=== PATIENT | male | born 1990 | race Caucasian/White ===

== ENCOUNTER 2017-09-12 10:40 | Emergency (ER) | payer SELFPAY ==
[2017-09-12 11:09] VITALS: BP 146/80; PULSE 80; TEMP 98.4; BMI 40.6
--- NOTE | 2017-09-12 11:39 | PDOC ---
History of Present Illness - General Chief Complaint: Penile Drainage Stated Complaint: INFECTION Time Seen by Provider: 09/12/17 11:13 History Source: Patient Exam Limitations: No Limitations - History of Present Illness Initial Comments: 09/12/17 11:36 Patient is a 26-year-old male past medical history of diabetes, who presents emergency department today complaining that he has a yeast infection to his foreskin. Patient states he had one last year. He noticed, cottage cheese like discharge before his shower. Also admits to foresking pain/ cracking, dysuria. Patient states he is in a monogamous relationship with one woman. Is not concern for STD testing at this time. Denies fevers, chills, testicular pain, drainage from the penis. Past History - Travel Traveled outside of the country in the last 30 days: No Close contact w/someone who was outside of country & ill: No - Past Medical History Allergies/Adverse Reactions: Allergies Allergy/AdvReac Type Severity Reaction Status Date / Time No Known Allergies Allergy Verified 09/12/17 11:02 Home Medications: Ambulatory Orders Lancets/Blood Glucose Strips [Fora [id number] Strp-Lnct] 1 each MC QID # 100 combo..pkg 07/18/15 Metformin HCl [Glucophage] 500 mg PO BID #60 tablet 07/18/15 Miscellaneous Medical Supply [Glucometer Device] 1 each SQ ASDIR #1 kit Miscellaneous Medical Supply [Glucometer Test Strips #100] 1 each SQ ASDIR #1 box 07/18/15 Fluconazole [Diflucan -] 100 mg PO DAILY #2 tablet 09/12/17 Mupirocin 1 gm TP TID #60 gm 09/12/17 COPD: No Diabetes: Yes (CHILDHOOD) - Immunization History Immunization Up to Date: Yes - Suicide/Smoking/Psychosocial Hx Smoking History: Never smoked Have you smoked in the past 12 months: Yes Number of Cigarettes Smoked Daily: 0 Information on smoking cessation initiated: No Hx Alcohol Use: Yes (OCCASIONALLY) Drug/Substance Use Hx: No Substance Use Type: None Review of Systems - Review of Systems Able to Perform ROS?: Yes Comments:: 09/12/17 11:38 CONSTITUTIONAL: Absent: fever, chills, diaphoresis, generalized weakness, malaise, loss of appetite GASTROINTESTINAL: Absent: abdominal pain, abdominal distension, nausea, vomiting, diarrhea, constipation, melena, hematochezia GENITOURINARY: Present: pain to foreskin, discharge from foreskin Absent: dysuria, frequency, urgency, hesitancy, hematuria, flank pain, genital pain SKIN: Absent: rash, itching, pallor NEUROLOGIC: Absent: headache, focal weakness or paresthesias, dizziness, unsteady gait, seizure, mental status changes, bladder or bowel incontinence PSYCHIATRIC: Absent: anxiety, depression, suicidal or homicidal ideation, hallucinations. Is the patient limited Palestinian proficient: No *Physical Exam - Vital Signs Last Vital Signs Temp Pulse Resp BP Pulse Ox 98.4 F 80 18 146/80 99 09/12/17 10:59 09/12/17 10:59 09/12/17 10:59 09/12/17 10:59 09/12/17 10:59 - Physical Exam Comments: 09/12/17 11:39 GENERAL: Well developed, well nourished. Awake and alert. No acute distress. ABDOMINAL: Soft. Non-tender. Non-distended. No rebound or guarding. No organomegaly. Normoactive bowel sounds. : Foreskin with cracking, and erythema. No discharge from foreskin noted. No discharge from the penile head. Testicles freely moving and descended b/l. No testicular pain. SKIN: Warm and dry. Normal capillary refill. No rashes. No jaundice. NEUROLOGICAL: Alert, awake, appropriate. Cranial nerves 2-12 intact. No deficits to light touch and temperature in face, upper extremities and lower extremities. No motor deficits in the in face, upper extremities and lower extremities. Normoreflexic in the upper and lower extremities. Normal speech. Toes are down- going bilaterally. Gait is normal without ataxia. Medical Decision Making - Medical Decision Making 09/12/17 11:49 Patient is a 26-year-old male past medical history of diabetes, who presents emergency department today complaining of pain in his foreskin as well as cottage cheeselike discharge. No discharge appreciated on exam, however patient states he showered before he came to the emergency department. Cracking to foreskin noted. We will treat with Bactroban and Diflucan at this time. Patient states he recently labs to his insurance and is not taking his diabetic medication. UA shows 3+ glucose. Explained to patient that he needs to restart the medication the cause he may have long-term consequences after not taking the meds. Return precautions given. Patient stands all discharge instructions and all questions were answered *DC/Admit/Observation/Transfer Diagnosis at time of Disposition: Yeast infection - Discharge Dispostion Disposition: HOME Condition at time of disposition: Stable Decision to Admit order: No - Prescriptions Prescriptions: Fluconazole [Diflucan -] 100 mg PO DAILY #2 tablet Mupirocin 1 gm TP TID #60 gm - Referrals Referrals: Bob Paulino MD [Staff Physician] - - Patient Instructions Printed Discharge Instructions: DI for Yeast Infection-Skin Additional Instructions: You have a yeast infection around your foreskin. Please use Monistat and the mupirocin on the cracks to help with pain and healing. Alternate using the creams. Please take Diflucan today. Then take the second pill on Wednesday to help treat the yeast. On your urine exam there is sugar in the urine. You need to go back on your diabetic medication. Please follow-up with the primary care referral provided for you. Return to the emergency department if you have worsening pain, fevers, chills, testicular pain, or give any changes in your symptoms. - Post Discharge Activity
[2017-09-12 11:54] LABS: URINE APPEARANCE CLEAR; URINE BILIRUBIN NEGATIVE (<2.0 mg/dL); URINE BLOOD NEGATIVE (NEGATIVE); URINE COLOR YELLOW; URINE GLUCOSE (UA) 3+ (NEGATIVE); URINE KETONE NEGATIVE (NEGATIVE); URINE LEUK ESTERASE NEGATIVE (NEGATIVE); URINE NITRITE NEGATIVE (NEGATIVE); URINE UROBILINOGEN NEGATIVE mg/dL (0.2-1.0)
[2017-09-12 11:55] LABS: URINE PROTEIN 2+ (NEGATIVE)
[2017-09-12 11:58] LABS: EPI CELLS RARE /HPF (FEW); URINE MUCUS RARE
== END 2017-09-12 12:22 | disposition home or self-care (01) ==
LOC: JER 10:40 → JERFT 10:40
DX: B37.49 Other urogenital candidiasis (principal); E11.9 Type 2 diabetes mellitus without complications; Z79.84 Long term (current) use of oral hypoglycemic drugs
CPT/HCPCS: 81003; 81015; 87086; 99281-25

== ENCOUNTER 2017-11-05 15:39 | Emergency (ER) | payer SELFPAY ==
[2017-11-05 15:53] VITALS: BP 149/90; PULSE 82; TEMP 98.5; BMI 41.2
--- NOTE | 2017-11-05 15:54 | PDOC ---
Rapid Medical Evaluation Time Seen by Provider: 11/05/17 15:49 Medical Evaluation: Allergies Allergy/AdvReac Type Severity Reaction Status Date / Time No Known Allergies Allergy Verified 09/12/17 11:02 11/05/17 15:49 I have performed a brief in-person evaluation of this patient. The patient presents with a chief complaint of: bennett discharge w/ discomfort to genitalia x 1 week. H/o NIDDM, non-compliant w/ meds, has not taken metformin ~ 1 yr Pertinent physical exam findings:will defer exam to ED provider I have ordered the following:ua/std The patient will proceed to the ED for further evaluation. Discharge Disposition - Diagnosis Balanitis - Referrals - Patient Instructions - Post Discharge Activity
--- NOTE | 2017-11-05 16:37 | PDOC ---
History of Present Illness - General Chief Complaint: Penile Drainage Stated Complaint: REVISIT, PENILE DRAINAGE Time Seen by Provider: 11/05/17 15:49 - History of Present Illness Initial Comments: 87-year-old male presents for evaluation of a rash and discharge from his penis. It's been like that for about a week now he's had this problem in the past he was diagnosed with the use infection given diclofenac and Bactroban and has never followed up since. He is a diabetic uncontrolled at this point because he is noncompliant with metformin because he cannot afford it. 11/05/17 16:34 Past History - Past Medical History Allergies/Adverse Reactions: Allergies Allergy/AdvReac Type Severity Reaction Status Date / Time No Known Allergies Allergy Verified 11/05/17 15:49 Home Medications: Ambulatory Orders Lancets/Blood Glucose Strips [Fora [id number] Strp-Lnct] 1 each QID # 100 combo..pkg 07/18/15 Metformin HCl [Glucophage] 500 mg PO BID #60 tablet 07/18/15 Fluconazole [Diflucan] 150 mg PO ONCE #1 tablet 11/05/17 Mupirocin Ointment [Bactroban 2% Ointment -] 1 applic TP BID #1 tube 11/05/17 COPD: No Diabetes: Yes (CHILDHOOD) - Immunization History Immunization Up to Date: Yes - Suicide/Smoking/Psychosocial Hx Smoking History: Former smoker Have you smoked in the past 12 months: No Number of Cigarettes Smoked Daily: 0 Information on smoking cessation initiated: No Hx Alcohol Use: Yes (OCCASIONALLY) Drug/Substance Use Hx: No Substance Use Type: None Review of Systems - Review of Systems : Yes: Other All Other Systems: Reviewed and Negative *Physical Exam - Vital Signs Last Vital Signs Temp Pulse Resp BP Pulse Ox 98.5 F 82 19 149/90 100 11/05/17 15:49 11/05/17 15:49 11/05/17 15:49 11/05/17 15:49 11/05/17 15:49 - Physical Exam Comments: He is uncircumcised there are fissures along the foreskin and cottage cheese like discharge around the glans of the penis the urethra is clear 11/05/17 16:36 Medical Decision Making - Medical Decision Making Is a male with penile fissures on the foreskin any yeast infection. He has a history of this. I've explained to him this is because of his uncontrolled diabetes. I have stressed the importance of glucose management. He has no sexual symptoms he has no discharge from his urethra and he is in the monogamous relationship 11/05/17 16:36 11/05/17 16:53 Finger stick 350's I will transfer him to the main ED *DC/Admit/Observation/Transfer Diagnosis at time of Disposition: Balanitis, Hyperglycemia due to type 2 diabetes mellitus - Prescriptions Prescriptions: Fluconazole [Diflucan] 150 mg PO ONCE #1 tablet Mupirocin Ointment [Bactroban 2% Ointment -] 1 applic TP BID #1 tube - Referrals - Patient Instructions - Post Discharge Activity
[2017-11-05] MEDS ORDERED: SODIUM CHLORIDE 0.9% 500 ML INFUS.BAG IV ONE (16:55)
--- NOTE | 2017-11-05 17:19 | PDOC ---
History of Present Illness - General Chief Complaint: Penile Drainage Stated Complaint: REVISIT, PENILE DRAINAGE Time Seen by Provider: 11/05/17 15:49 History Source: Patient Exam Limitations: No Limitations - History of Present Illness Initial Comments: 27 YOM with h/o NIDDM (not currently medicated or checking BG at home) who p/w 4 days of worsening penile pain and discharge. He describes swelling and small cuts/lesions to the foreskin which become very painful (8/10 burning) whenever he attempts to retract it to urinate. He has had similar but milder symptoms in the past, and was treated here in [facility] within the past month for this. Prior to this past month, the last time he had a yeast infection was 5 years ago. He notes having previously taken Metformin (1000 mg/day) but stopped taking this because he lost weight and his blood sugar level started dropping too low. He denies any recent headache, dizziness, lightheadedness, SOB, chest pain, abdominal pain, n/v/d/c, polyuria, polydipsia, or other symptoms. Past History - Past Medical History Allergies/Adverse Reactions: Allergies Allergy/AdvReac Type Severity Reaction Status Date / Time No Known Allergies Allergy Verified 11/05/17 15:49 Home Medications: Ambulatory Orders Lancets/Blood Glucose Strips [Fora [id number] Strp-Lnct] 1 each QID # 100 combo..pkg 07/18/15 Metformin HCl [Glucophage] 500 mg PO BID #60 tablet 07/18/15 Fluconazole [Diflucan] 150 mg PO ONCE #1 tablet 11/05/17 Mupirocin Ointment [Bactroban 2% Ointment -] 1 applic TP BID #1 tube 11/05/17 COPD: No Diabetes: Yes (CHILDHOOD) - Immunization History Immunization Up to Date: Yes - Suicide/Smoking/Psychosocial Hx Smoking History: Former smoker Have you smoked in the past 12 months: No Number of Cigarettes Smoked Daily: 0 Information on smoking cessation initiated: No Hx Alcohol Use: Yes (OCCASIONALLY) Drug/Substance Use Hx: No Substance Use Type: None Review of Systems - Review of Systems Able to Perform ROS?: Yes Constitutional: No: Chills, Fever, Unexplained wgt Loss HEENTM: No: Nose Congestion, Throat Pain Respiratory: No: Cough, Shortness of Breath Cardiac (ROS): No: Chest Pain, Palpitations ABD/GI: No: Constipated, Diarrhea, Nausea, Vomiting : Yes: Burning, Dysuria, Discharge, Pain, Lesions. No: Flank Pain, Hematuria , Testicular Mass, Testicular Swelling Musculoskeletal: No: Back Pain, Neck Pain Integumentary: No: Bruising, Rash Neurological: No: Headache, Numbness, Tingling, Weakness, Dizziness Endocrine: No: Unexplained Weight Gain, Unexplained Weight Loss *Physical Exam - Vital Signs Last Vital Signs Temp Pulse Resp BP Pulse Ox 98.5 F 82 19 149/90 100 11/05/17 15:49 11/05/17 15:49 11/05/17 15:49 11/05/17 15:49 11/05/17 15:49 - Physical Exam General Appearance: Yes: Nourished, Appropriately Dressed, Obese, Other ( comfortable appearing adult male, accompanied by significant other, answering appropriately). No: Apparent Distress HEENT: positive: EOMI, IONA, Normal Voice, Hearing Grossly Normal. negative: Scleral Icterus (R), Scleral Icterus (L), Nasal Congestion Neck: positive: Trachea midline, Supple. negative: Tender, Rigid Respiratory/Chest: positive: Lungs Clear, Normal Breath Sounds. negative: Respiratory Distress, Crackles, Rhonchi, Stridor, Wheezing Cardiovascular: positive: Regular Rhythm, Regular Rate, S1, S2. negative: Edema , JVD, Murmur Gastrointestinal/Abdominal: positive: Normal Bowel Sounds, Soft. negative: Tender, Organomegaly, Pulsatile Mass, Guarding Male Genitalia: positive: other (uncircumcised, foreskin mild swelling/erythema and tender superficial 1 mm fissures x3). negative: testicular tenderness Musculoskeletal: positive: Normal Inspection. negative: Decreased Range of Motion, Vertebral Tenderness Extremity: positive: Normal Capillary Refill, Normal Inspection, Normal Range of Motion. negative: Tender, Cyanosis Integumentary: positive: Normal Color, Dry, Warm. negative: Erythema, Rash, Bruising Neurologic: positive: classroom monitor II-XII NML intact, Fully Oriented, Alert, Normal Mood/ Affect, Normal Response, Motor Strength 5/5 ED Treatment Course - LABORATORY CBC & Chemistry Diagram: 11/05/17 17:25 11/05/17 17:25 - Medications Given in the ED: ED Medications Discontinued Medications Generic Name Dose Route Start Last Admin Trade Name Hema PRN Reason Stop Dose Admin Sodium Chloride 1,000 ml 11/05/17 16:55 11/05/17 17:15 Normal Saline - IV 11/05/17 16:56 1,000 ml ONCE ONE Administration Medical Decision Making - Medical Decision Making Adult male Pt p/w penile pain and discharge with recent h/o balanitis tx here in [facility] within the past month. Also found to have hyperglycemia, h/o NIDDM, no current medications or regular BG checks at home. Initial Vital Signs Temp Pulse Resp BP Pulse Ox 98.5 F 82 19 149/90 100 11/05/17 15:49 11/05/17 15:49 11/05/17 15:49 11/05/17 15:49 11/05/17 15:49 Exam: Results as noted in Physical Exam section. DDX IBNLT: balanitis, urethritis, cellulitis, hernia, testicular torsion, epididymitis, orchitis, Fourniers gangrene, abscess (scrotal, perirectal, folliculitis, etc), spermatocele/hydrocele/hematocele (consider RCC if left varicocele as RCC mass can obstruct gonadal vein where it enters the renal vein) , referred pain (i.e. UTI/pyelonephritis, renal colic, appendicitis, etc), malignancy, contact dermatitis, musculoskeletal, etc. W/U ordered: CBCD CMP Mg Phos Coags UA UCx T&S GC/Chlam/trich NAAT (urethral swab) GC culture US scrotum and scrotal contents TX ordered: IVF, Ofirmev Laboratory Tests 11/05/17 11/05/17 11/05/17 16:20 16:46 17:25 WBC 10.2 H RBC 5.58 Hgb 15.3 Hct 45.6 MCV 81.8 MCH 27.4 MCHC 33.5 RDW 13.3 Plt Count 182 MPV 9.3 Absolute Neuts (auto) 6.2 Neutrophils % 60.5 Lymphocytes % 32.3 Monocytes % 5.2 Eosinophils % 1.1 Basophils % 0.9 Nucleated RBC % 0 VBG pH POC VBG pCO2 POC VBG pO2 Mixed VBG HCO3 Sodium Potassium Chloride Carbon Dioxide Anion Gap BUN Creatinine Creat Clearance w eGFR POC Glucometer [phone] Random Glucose Calcium Phosphorus Magnesium Total Bilirubin AST ALT Alkaline Phosphatase Total Protein Albumin Urine Color Ltyellow Urine Appearance Clear Urine pH 6.0 Ur Specific Frederick 1.033 Urine Protein 1+ H Urine Glucose (UA) 3+ H Urine Ketones Trace H Urine Blood Negative Urine Nitrite Negative Urine Bilirubin Negative Urine Urobilinogen 2.0 Ur Leukocyte Esterase 1+ H Urine WBC (Auto) 4 Urine RBC (Auto) 3 Ur Epithelial Cells Rare Urine Bacteria Rare Acetone, Qual 11/05/17 11/05/17 11/05/17 17:25 17:25 17:25 WBC RBC Hgb Hct MCV MCH MCHC RDW Plt Count MPV Absolute Neuts (auto) Neutrophils % Lymphocytes % Monocytes % Eosinophils % Basophils % Nucleated RBC % VBG pH 7.37 POC VBG pCO2 49.5 POC VBG pO2 35.9 Mixed VBG HCO3 28.0 H Sodium 140 Potassium 4.4 Chloride 104 Carbon Dioxide 27 Anion Gap 9 BUN 14 Creatinine 0.8 Creat Clearance w eGFR > 60 POC Glucometer Random Glucose 333 H* D Calcium 8.7 Phosphorus 3.6 Magnesium 1.9 Total Bilirubin 0.4 AST 27 D ALT 48 D Alkaline Phosphatase 132 H Total Protein 7.2 Albumin 3.6 Urine Color Urine Appearance Urine pH Ur Specific Frederick Urine Protein Urine Glucose (UA) Urine Ketones Urine Blood Urine Nitrite Urine Bilirubin Urine Urobilinogen Ur Leukocyte Esterase Urine WBC (Auto) Urine RBC (Auto) Ur Epithelial Cells Urine Bacteria Acetone, Qual Negative 11/05/17 17:44 WBC RBC Hgb Hct MCV MCH MCHC RDW Plt Count MPV Absolute Neuts (auto) Neutrophils % Lymphocytes % Monocytes % Eosinophils % Basophils % Nucleated RBC % VBG pH POC VBG pCO2 POC VBG pO2 Mixed VBG HCO3 Sodium Potassium Chloride Carbon Dioxide Anion Gap BUN Creatinine Creat Clearance w eGFR POC Glucometer [phone] Random Glucose Calcium Phosphorus Magnesium Total Bilirubin AST ALT Alkaline Phosphatase Total Protein Albumin Urine Color Urine Appearance Urine pH Ur Specific Frederick Urine Protein Urine Glucose (UA) Urine Ketones Urine Blood Urine Nitrite Urine Bilirubin Urine Urobilinogen Ur Leukocyte Esterase Urine WBC (Auto) Urine RBC (Auto) Ur Epithelial Cells Urine Bacteria Acetone, Qual Reassessment: Exam unchanged, patient comfortable going home. Repeat VS: DISCHARGE The Pt has gotten significant relief of symptoms with ED medications. Workup is not concerning for emergency-level pathology at this time. The Pt is appropriate for discharge with close outpatient follow up. Referral information is given for resident primary care clinic. They are comfortable with this plan and will follow up with their PCP in 1-3 days. Metformin and Diflucan given here in the ED. Specific return precautions are discussed and they will come back to the ER if necessary. *DC/Admit/Observation/Transfer Diagnosis at time of Disposition: Balanitis Hyperglycemia due to type 2 diabetes mellitus Qualifiers: Diabetes mellitus oil heaterman insulin use: without alf use Qualified Code(s ): E11.65 - Type 2 diabetes mellitus with hyperglycemia - Discharge Dispostion Disposition: HOME Condition at time of disposition: Stable Decision to Admit order: No - Prescriptions Prescriptions: Fluconazole [Diflucan] 150 mg PO ONCE #1 tablet Mupirocin Ointment [Bactroban 2% Ointment -] 1 applic TP BID #1 tube - Referrals Referrals: [facility] [place] [Provider Group] - Patient Instructions Printed Discharge Instructions: DI for Balanitis Additional Instructions: You were seen in the ER for genitourinary pain, as well as high blood sugar and diabetes. We did an exam, laboratory work on your blood and urine, sent fluid cultures, and we believe you have an infection called angely. We gave you a dose of metformin and a pill of Diflucan antifungal here in the ER. The fluid cultures take a few days to result, so please call back for your results at that time (you should receive a call anyway if there are any abnormal findings) . After our assessment, we believe you are not having a medical emergency and you are safe to go home. 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 Please take [id number] pain relievers like ibuprofen ( Motrin) or Tylenol. Follow up with a regular doctor(s) in the next 1-3 days. We are giving you referral information for our primary care clinic across the streets. Call their clinic [facility], tell them you were seen in the ER, and tell them you need an appointment. Please come back to the ER at any time, 24 hours a day, for any new or worsening symptoms, like worsening pain or swelling, worsening discharge, high fever, or other symptoms. If you are having severe or life threatening symptoms, or symptoms that make it unsafe to drive or have someone drive you, please call 911. - Post Discharge Activity
--- NOTE | 2017-11-05 17:27 | PDOC ---
Attending Attestation - Resident Resident Name: Maggie Herrmann - ED Attending Attestation I have performed the following: I have examined & evaluated the patient, The case was reviewed & discussed with the resident, I agree w/resident's findings & plan - HPI HPI: 11/05/17 17:24 27y/o M NIDDM noncompliant with meds 2/2 lack of primary care (prescribed metformin in the past but has not taken anything in 2 years) presents now with sxs of balanitis diagnosed in [facility]. He has successfully been treated for same in the past. Noted to have fingerstick 350 so sent to ED for further evaluation. - Physicial Exam PE: 11/05/17 17:25 VSS alert, nad no jaundice/pallor. mmm heart regular, abd benign agree with exam, no evidence of phimosis/paraphimosis or scrotal/testicular disease - Medical Decision Making 11/05/17 17:26 27y/o M with hyperglycemia 2/2 untreated DM, complicated by balanitis. r/o ketosis. labs, ua, urine cx ivf treat balanitis, refer to [facility] clinic 11/05/17 18:44 labs including pH are normal aside from isolated hyperglycemia. No evidence of DKA. UA pending, r/o superimposed UTI then d/c with meds and PMD/Endo/ f/u.
[2017-11-05 17:41] LABS: BASO % 0.9 % (0-2.0); EOS % 1.1 % (0-4.5); HEMATOCRIT 45.6 % (35.4-49); HEMOGLOBIN 15.3 GM/dL (11.7-16.9); LYMPH % 32.3 % (8-40); MCH 27.4 pg (25.7-33.7); MCHC 33.5 g/dl (32.0-35.9); MEAN CELL VOLUME 81.8 fl (80-96); MEAN PLT VOLUME 9.3 fl (7.5-11.1); MONO % 5.2 % (3.8-10.2); NEUT % 60.5 % (42.8-82.8); PLATELET COUNT 182 K/MM3 (134-434); RBC 5.58 M/mm3 (4.00-5.60); RDW 13.3 % (11.9-15.9); WHITE BLOOD COUNT 10.2 K/mm3 (4.0-10.0)
[2017-11-05 17:48] LABS: VENOUS PC02 49.5 mmHg (38-52); VENOUS PH 7.37 (7.32-7.42); VENOUS PO2 35.9 mmHg (28-48)
[2017-11-05 18:11] LABS: MAGNESIUM 1.9 mg/dL (1.8-2.4); PHOSPHOROUS 3.6 mg/dL (2.5-4.9)
[2017-11-05 18:13] LABS: ALBUMIN 3.6 g/dl (3.4-5.0); ANION GAP 9 (8-16); BLOOD UREA NITROGEN 14 mg/dL (7-18); CALCIUM 8.7 mg/dL (8.5-10.1); CHLORIDE 104 mmol/L (98-107); CO2 27 mmol/L (21-32); CREATININE 0.8 mg/dL (0.7-1.3); SGPT/ALT 48 U/L (12-78); SODIUM 140 mmol/L (136-145)
[2017-11-05 18:15] LABS: ALK PHOS 132 U/L (45-117); BILIRUBIN,TOTAL 0.4 mg/dL (0.2-1.0); TOT PROT 7.2 g/dl (6.4-8.2)
[2017-11-05 18:23] LABS: POTASSIUM 4.4 mmol/L (3.5-5.1)
[2017-11-05 18:24] LABS: GLUCOSE,RANDOM 333 mg/dL (74-106); SGOT/AST 27 U/L (15-37)
[2017-11-05 18:25] LABS: ACETONE SERUM NEGATIVE (NEGATIVE)
[2017-11-05 19:02] LABS: URINE APPEARANCE CLEAR; URINE BILIRUBIN NEGATIVE (<2.0 mg/dL); URINE COLOR LTYELLOW; URINE GLUCOSE (UA) 3+ (NEGATIVE); URINE KETONE TRACE (NEGATIVE); URINE NITRITE NEGATIVE (NEGATIVE)
[2017-11-05 19:05] LABS: URINE LEUK ESTERASE 1+ (NEGATIVE); URINE PROTEIN 1+ (NEGATIVE)
[2017-11-05 19:09] LABS: EPI CELLS RARE /HPF (FEW); URINE BACTERIA RARE /hpf (NONE SEEN)
[2017-11-05] MEDS ORDERED: metFORMIN HCL 500 MG TABLET (FP) PO ONE (19:17)
[2017-11-05] MEDS ORDERED: FLUCONAZOLE 100 MG TABLET (UD) PO ONE (19:20)
[2017-11-05] MEDS ORDERED: FLUCONAZOLE 100 MG TABLET (UD) ONE (19:31)
== END 2017-11-05 19:39 | disposition home or self-care (01) ==
LOC: JER 15:39 → JERFT 15:39 → JER 19:39
PROC: 3E0337Z Introduction of Electrolytic and Water Balance Substance into Peripheral Vein, Percutaneous Approach (ICD-10-PCS; principal; 2017-11-05)
DX: N48.1 Balanitis (principal); E11.65 Type 2 diabetes mellitus with hyperglycemia; Z79.84 Long term (current) use of oral hypoglycemic drugs; Z87.891 Personal history of nicotine dependence
CPT/HCPCS: 36415; 80053; 81003; 81015; 82009; 82803; 82962; 83735; 84100; 85025; 87491; 87591; 99282-25

== ENCOUNTER 2018-06-06 16:04 | Emergency (ER) | payer SELFPAY ==
[2018-06-06 16:28] VITALS: BP 134/81; PULSE 94; TEMP 98.4; BMI 42.2
[2018-06-06] MEDS ORDERED: SODIUM CHLORIDE 1,000 ML IV SCH ×2 (17:30→18:15)
--- NOTE | 2018-06-06 17:32 | PDOC ---
History of Present Illness - General Chief Complaint: Blood Sugar Problem Stated Complaint: REFERRED BY DR Munoz Seen by Provider: 06/06/18 16:56 - History of Present Illness Initial Comments: 06/06/18 17:26 27 year old man with prior history of DM2 who presents after visit to urgent care for finger wound and found to have a blood sugar of 472. The patient denies any polyuria, polydipsia, recent illness, recent fever, steroid use, n/v/ d/c, abdominal pain or headache. He notes that he was 25 when he had symptoms of polyuria, polydipsia was found to have a blood sugar in the 700s, was seen by Dr. Dove and was started on metformin 500u BID then increased to 1000u BID. The patient took the medications for 6 months, but was able to discontinue medications as he had lost weight. The patient has continued to lose weight since 2 years. Over the past week the patient noted a genital yeast infection that had previously when he had the diabetes. He currently is trying to find a primary care physician as he had lost his insurance but now has regained it. The urgent care physician he saw is a PCP and had sent him glucometer, lancet and test strips as well as insulin, however the patient could not afford the insulin. He denies any other complaints at bedside. Past History - Past Medical History Allergies/Adverse Reactions: Allergies Allergy/AdvReac Type Severity Reaction Status Date / Time No Known Allergies Allergy Verified 11/05/17 15:49 Home Medications: Ambulatory Orders Lancets/Blood Glucose Strips [Fora [id number] Strp-Lnct] 1 each QID # 100 combo..pkg 07/18/15 Metformin HCl [Glucophage] 500 mg PO BID #60 tablet 07/18/15 Fluconazole [Diflucan] 150 mg PO ONCE #1 tablet 11/05/17 Mupirocin Ointment [Bactroban 2% Ointment -] 1 applic TP BID #1 tube 11/05/17 metFORMIN HCL [Metformin HCl] 500 mg PO BID 8 Days #16 solution 06/06/18 COPD: No Diabetes: Yes (CHILDHOOD) - Immunization History Immunization Up to Date: Yes - Suicide/Smoking/Psychosocial Hx Smoking History: Current every day smoker Have you smoked in the past 12 months: Yes Number of Cigarettes Smoked Daily: 0 Information on smoking cessation initiated: No Hx Alcohol Use: No Drug/Substance Use Hx: No Substance Use Type: None *Physical Exam - Vital Signs Last Vital Signs Temp Pulse Resp BP Pulse Ox 98.4 F 94 H 18 134/81 100 06/06/18 16:25 06/06/18 16:25 06/06/18 16:25 06/06/18 16:25 06/06/18 16:25 - Physical Exam Comments: 06/06/18 18:14 L finger bump with darkening and hardening noncellulitic not redness, swelling, fluctuance Moderate Sedation - Procedure Monitoring Vital Signs: Procedure Monitoring Vital Signs Temperature 98.4 F 06/06/18 16:25 Pulse Rate 94 H 06/06/18 16:25 Respiratory Rate 18 06/06/18 16:25 Blood Pressure 134/81 06/06/18 16:25 O2 Sat by Pulse Oximetry (%) 100 06/06/18 16:25 ED Treatment Course - LABORATORY CBC & Chemistry Diagram: 06/06/18 17:42 06/06/18 17:42 Medical Decision Making - Medical Decision Making 06/06/18 18:15 27 year old man with prior history of DM2 who presents after visit to urgent care for finger wound and found to have a blood sugar of 472. The patient denies any polyuria, polydipsia, recent illness, recent fever, steroid use, n/v/ d/c, abdominal pain or headache. He notes that he was 25 when he had symptoms of polyuria, polydipsia was found to have a blood sugar in the 700s, was seen by Dr. Dove and was started on metformin 500u BID then increased to 1000u BID. The patient took the medications for 6 months, but was able to discontinue medications as he had lost weight. The patient has continued to lose weight since 2 years. Over the past week the patient noted a genital yeast infection that had previously when he had the diabetes. ED Course: R/o HHS vs DKA consider patient has DM2 cbc, cmp, acetone, ua, ucx 2L IVF *DC/Admit/Observation/Transfer Diagnosis at time of Disposition: Hyperglycemia - Discharge Dispostion Disposition: HOME Condition at time of disposition: Stable Decision to Admit order: No - Prescriptions Prescriptions: metFORMIN HCL [Metformin HCl] 500 mg PO BID 8 Days #16 solution - Referrals Referrals: Cha Lechuga [Primary Care Provider] - [facility] [place] [facility] [place] Group] - Patient Instructions Printed Discharge Instructions: DI for Hyperglycemia -- Adult Additional Instructions: You were seen in the ED for complaints of elevated blood sugar. In the ED you were evaluated with labwork and treated with IV fluids with improvement of blood sugar. Your results did not show significant findings. There does not appear to be an acute need for immediate hospitalization. You are advised to follow up with your Primary Care Physician within 1 week. You were given a referral to Internal Medicine clinic and are advised to follow up within 1 week. You were given a prescription for a short course of Metformin 500u twice a day. Take the medications as directed, please monitor your blood sugar closely. Return to the ED immediately if you experience excessive urination or thirst, confusion, lethargy, loss of consciousness, fever, weakness, dizziness, chest pain or palpitations. - Post Discharge Activity
--- NOTE | 2018-06-06 18:21 | PDOC ---
Attending Attestation - Resident Resident Name: Lindy Gómez - ED Attending Attestation I have performed the following: I have examined & evaluated the patient, The case was reviewed & discussed with the resident, I agree w/resident's findings & plan, Exceptions are as noted - HPI HPI: 06/06/18 18:11 27 M with h/o DM2 (previously on metformin) presenting to ED with elevated blood sugar. Pt was at urgent care for a wart on his finger. While there, his sugar was checked and found to be in the 400s. Pt denies any symptoms whatsoever. Denies polydipsia or polyuria. Denies N/V. Denies abdominal pain. Denies CP/SOB. Denies F/C. Pt states that he has not been compliant with his meds or following up with his doctor due to insurance issues but now has a new PMD with whom he will follow. - Physicial Exam PE: 06/06/18 18:22 "GENERAL: Awake, alert, and fully oriented, in no acute distress. HEAD: No signs of trauma EYES: PERRLA, EOMI, sclera anicteric, conjunctiva clear ENT: Auricles normal inspection, hearing grossly normal, nares patent, oropharynx clear without exudates. Moist mucosa NECK: Nontender, no stepoffs, Normal ROM, supple, no lymphadenopathy, JVD, or masses LUNGS: Breath sounds equal, clear to auscultation bilaterally. No wheezes, and no crackles HEART: Regular rate and rhythm, normal S1 and S2, no murmurs, rubs or gallops ABDOMEN: Soft, nontender, normoactive bowel sounds. No guarding, no rebound. No masses EXTREMITIES: Normal range of motion, no edema. No clubbing or cyanosis. No cords, erythema, or tenderness NEUROLOGICAL: Cranial nerves II through XII intact. 5/5 strength and sensation in all extremities, Normal speech, normal gait, normal cerebellar function SKIN: Warm, Dry, normal turgor, no rashes or lesions noted. - Medical Decision Making 06/06/18 18:22 27 M with elevated fingerstick at urgent care. No complaints at this time, vitals stable. Will check basic labs to r/o electrolyte derangement. - Labs, acetone - IVF - Discuss with PMD 06/06/18 19:08 Unable to contact pt's PMD Will restart pt's metformin Labs unremarkable, no evidence of DKA Pt is well appearing, with normal vitals. Clinically stable for DC at this time. I discussed the physical exam findings, ancillary test results and final diagnoses with the patient. I answered all of the patient's questions. The patient was satisfied with the care received and felt comfortable with the discharge plan and treatment plan. The patient agrees to follow up with the primary care physician within 24-72 hours.
[2018-06-06 18:44] LABS: BASO % 0.4 % (0-2.0); EOS % 1.5 % (0-4.5); HEMATOCRIT 47.3 % (35.4-49); HEMOGLOBIN 16.6 GM/dL (11.7-16.9); LYMPH % 35.1 % (8-40); MCH 28.9 pg (25.7-33.7); MEAN CELL VOLUME 82.7 fl (80-96); MONO % 6.1 % (3.8-10.2); NEUT % 56.9 % (42.8-82.8); PLATELET COUNT 197 K/MM3 (134-434); RBC 5.73 M/mm3 (4.00-5.60); RDW 13.2 % (11.9-15.9); WHITE BLOOD COUNT 11.1 K/mm3 (4.0-10.0)
[2018-06-06 18:51] LABS: ALBUMIN 3.7 g/dl (3.4-5.0); ALK PHOS 160 U/L (45-117); ANION GAP 6 MMOL/L (8-16); BILIRUBIN,TOTAL 0.4 mg/dL (0.2-1); BLOOD UREA NITROGEN 12 mg/dL (7-18); CALCIUM 8.7 mg/dL (8.5-10.1); CHLORIDE 100 mmol/L (98-107); CO2 29 mmol/L (21-32); SGOT/AST 17 U/L (15-37); SGPT/ALT 44 U/L (13-61); SODIUM 135 mmol/L (136-145); TOT PROT 7.8 g/dl (6.4-8.2)
[2018-06-06 18:53] LABS: GLUCOSE,RANDOM 339 mg/dL (74-106)
[2018-06-06 19:02] LABS: URINE APPEARANCE CLEAR; URINE BILIRUBIN NEGATIVE (<2.0 mg/dL); URINE COLOR LTYELLOW; URINE GLUCOSE (UA) 3+ (NEGATIVE); URINE KETONE NEGATIVE (NEGATIVE); URINE LEUK ESTERASE TRACE (NEGATIVE); URINE NITRITE NEGATIVE (NEGATIVE); URINE PROTEIN 1+ (NEGATIVE); URINE UROBILINOGEN NEGATIVE mg/dL (0.2-1.0)
[2018-06-06 19:18] LABS: EPI CELLS RARE /HPF (FEW)
== END 2018-06-06 21:30 | disposition home or self-care (01) ==
LOC: JER 16:04
DX: E11.65 Type 2 diabetes mellitus with hyperglycemia (principal); Z79.84 Long term (current) use of oral hypoglycemic drugs
CPT/HCPCS: 36415; 80053; 81003; 81015; 82009; 82962; 85025; 87086; 99283-25; J7030

== ENCOUNTER 2018-10-20 21:33 | Emergency (ER) | payer OTHER ==
[2018-10-20 21:54] VITALS: BP 125/84; PULSE 99; TEMP 98.5; BMI 39.4
[2018-10-20] MEDS ORDERED: ERYTHROMYCIN 0.5% OPHTHALMIC OINTMENT 3.5 GM TUBE OD ONE (23:17)
--- NOTE | 2018-10-20 23:17 | PDOC ---
History of Present Illness - General Chief Complaint: Blurry Vision Stated Complaint: IMPAIRED VISION/R/EYE Time Seen by Provider: 10/20/18 22:56 History Source: Patient Exam Limitations: No Limitations - History of Present Illness Initial Comments: 10/20/18 23:12 HISTORY OF PRESENT ILLNESS: 27-year-old male with history of NIDDM who presents emergency departments with atraumatic right eye blurry vision starting upon awaking at 3 PM this afternoon. 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 Patient reports his blood sugars have been 110s to 130s. He reports he has not lost any vision chest that "I feel drunk" with his vision. Patient endorses photophobia with increased tearing with prolonged exposure to light to the right eye. No recent travel or sick contacts. PAST MEDICAL HISTORY: NIDDM SURGICAL HISTORY: Denies ALLERGIES: No known drug allergies REVIEW OF SYSTEMS General/Constitutional: Denies fever or chills. Denies weakness, weight change. HEENT: see HPI Cardiovascular: Denies chest pain or shortness of breath. Respiratory: Denies cough, wheezing, or hemoptysis. Gastrointestinal: Denies nausea, vomiting, diarrhea or constipation. Denies rectal bleeding. Genitourinary: Denies dysuria, frequency, or change in urination. Musculoskeletal: Denies joint or muscle swelling or pain. Denies neck or back pain. Skin and breasts: Denies rash or easy bruising. Neurologic: Denies headache, vertigo, loss of consciousness, or loss of sensation. Psychiatric: Denies depression or anxiety. Endocrine: Denies increased thirst. Denies abnormal weight change. Hematologic/Lymphatic: Denies anemia, easy bleeding, or history of blood clots. Allergic/Immunologic: Denies hives or skin allergy. Denies latex allergy. PHYSICAL EXAM General Appearance: Well-appearing, appropriately dressed. No apparent distress , no intoxication. HEENT: EOMI, PERRLA, normal ENT inspection, normal voice, TMs normal, pharynx normal. No conjunctival pallor. No scleral icterus. (+)photophobia. Respiratory/Chest: Lungs CTAB. No shortness of breath, chest tenderness, respiratory distress, accessory muscle use. No crackles, rales, rhonchi, stridor , wheezing, dullness Cardiovascular: RRR. S1, S2. No JVD, murmur, bradycardia, tachycardia. 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 Fully oriented, alert. Appropriate mood/affect. Motor strength 5/5. No appreciable EOM palsy, facial droop or sensory deficit. 10/20/18 23:18 10/20/18 23:19 10/21/18 19:57 Past History - Past Medical History Allergies/Adverse Reactions: Allergies Allergy/AdvReac Type Severity Reaction Status Date / Time No Known Allergies Allergy Verified 10/20/18 21:52 Home Medications: Ambulatory Orders Lancets/Blood Glucose Strips [Fora [id number] Strp-Lnct] 1 each QID # 100 combo..pkg 07/18/15 Metformin HCl [Glucophage] 500 mg PO BID #60 tablet 07/18/15 Fluconazole [Diflucan] 150 mg PO ONCE #1 tablet 11/05/17 Mupirocin Ointment [Bactroban 2% Ointment -] 1 applic TP BID #1 tube 11/05/17 metFORMIN HCL [Metformin HCl] 500 mg PO BID 8 Days #16 solution 06/06/18 Erythromycin 0.5% Eye Ointment [Erythromycin 0.5% Eye Ointment -] 1 applic OD TID #1 tube 10/20/18 COPD: No Diabetes: Yes - Immunization History Immunization Up to Date: Yes - Suicide/Smoking/Psychosocial Hx Smoking History: Current some day smoker Have you smoked in the past 12 months: Yes Number of Cigarettes Smoked Daily: 1 Information on smoking cessation initiated: No Hx Alcohol Use: No Drug/Substance Use Hx: No Substance Use Type: None *Physical Exam - Vital Signs Last Vital Signs Temp Pulse Resp BP Pulse Ox 98.5 F 99 H 18 125/84 97 10/20/18 21:52 10/20/18 21:52 10/20/18 21:52 10/20/18 21:52 10/20/18 21:52 Medical Decision Making - Medical Decision Making 10/20/18 23:12 A/P: 27-year-old diabetic with right I blurry vision since awakening at 3 PM EYE EXAMINATION: Visual acuity: 20/200 in the left eye, 20/200 in the right eye, near, uncorrected The lid and lashes are normal. Extraocular movements are intact. The conjunctiva is clear without erythema, injection, or discharge The corneal surface with corneal abrasion present to the 2 o'clock position over the lens of the right eye post tetracaine and fluorescein. There is no corneal ulceration or foreign body. The pupils are equal, round and reactive to light. The fundus shows normal vessels and normal discs. No cotton wool spots noted Discharge with erythromycin ointment and referral for ophthalmology for reevaluation. *DC/Admit/Observation/Transfer Diagnosis at time of Disposition: Corneal abrasion, right Qualifiers: Encounter type: initial encounter Qualified Code(s): S05.01XA - Injury of conjunctiva and corneal abrasion without foreign body, right eye, initial encounter - Discharge Dispostion Disposition: HOME Condition at time of disposition: Stable Decision to Admit order: No - Prescriptions Prescriptions: Erythromycin 0.5% Eye Ointment [Erythromycin 0.5% Eye Ointment -] 1 applic OD TID #1 tube - Referrals Referrals: Ann Dove MD [Primary Care Provider] - Noel Jang MD [Staff Physician] - - Patient Instructions Additional Instructions: Rest, avoid rubbing eyes Wash hands, use eye drops as directed, wash hands after use May use eye lubricating drops as often as needed erythromycin ointment, one thin film 3 times a day for 5 days Tylenol or ibuprofen for pain relief Avoid contact with others until redness and discharge is gone from eyes. Followup with ophthalmology in one to 2 days for thorough exam Return to emergency department for worsened pain, swelling, vision problems. - Post Discharge Activity Forms/Work/School Notes: Back to Work, Back to School
[2018-10-20] MEDS ORDERED: ERYTHROMYCIN 0.5% OPHTHALMIC OINTMENT 3.5 GM TUBE ONE (23:24)
== END 2018-10-20 23:36 | disposition home or self-care (01) ==
LOC: JER 21:33
PROC: 4A07X0Z Measurement of Visual Acuity, External Approach (ICD-10-PCS; principal; 2018-10-20)
DX: S05.01XA Injury of conjunctiva and corneal abrasion without foreign body, right eye, initial encounter (principal); X58.XXXA Exposure to other specified factors, initial encounter; Y93.89 Activity, other specified; Y92.89 Other specified places as the place of occurrence of the external cause; Y99.8 Other external cause status; E11.9 Type 2 diabetes mellitus without complications; Z79.84 Long term (current) use of oral hypoglycemic drugs
CPT/HCPCS: 99282-25